=== PATIENT | female | born 1945 | race Caucasian/White ===

== ENCOUNTER → 2019-10-13 13:32 | Outpatient (BNVA) | payer MEDICARE, OTHER, SELFPAY | PROVIDERS: Family Provider Internal Medicine; PCP Internal Medicine; Visit Provider Internal Medicine | DX: E03.9 Hypothyroidism, unspecified (principal) | CPT/HCPCS: 84443 ==

== ENCOUNTER → 2020-02-22 16:05 | Outpatient (BNVA) | payer MEDICARE, OTHER, SELFPAY | PROVIDERS: Family Provider Internal Medicine; PCP Internal Medicine; Visit Provider Internal Medicine Cardiovascular Disease | DX: R06.02 Shortness of breath (principal); Z79.01 Long term (current) use of anticoagulants; I50.33 Acute on chronic diastolic (congestive) heart failure; I12.9 Hypertensive chronic kidney disease with stage 1 through stage 4 chronic kidney disease, or unspecified chronic kidney disease; N18.9 Chronic kidney disease, unspecified; R07.89 Other chest pain; I42.8 Other cardiomyopathies; I35.8 Other nonrheumatic aortic valve disorders; E03.9 Hypothyroidism, unspecified; E78.2 Mixed hyperlipidemia; Z87.891 Personal history of nicotine dependence | CPT/HCPCS: 80048; 83880; 84443; 85025 ==

== ENCOUNTER 2020-03-12 15:21 | Outpatient (CLI) | payer MEDICARE, OTHER, SELFPAY ==
--- NOTE | 2020-03-12 15:45 | USCV_ITS ---
Beatrice Shiela Age: 74 Gender: F : 1945 Exam Date: 03/12/2020 15:43 Ordering Phys: Angela Holloway MD ([email or web address]) Technologist: Analy Arellano Exam Location: [facility] Indication: SOB BP: / HR: 88 Rhythm: Sinus Technical Quality: Technically difficult study MEASUREMENTS (Male / Female) Normal Values 2D ECHO LV Diastolic Diameter PLAX 4.4 cm 4.2 - 5.9 / 3.9 - 5.3 cm LV Systolic Diameter PLAX 1.9 cm LV Chamber Size 3.2 cm IVS Diastolic Thickness 1.3 cm 0.6 - 1.0 / 0.6 - 0.9 cm IVS Systolic Thickness 1.6 cm LVPW Diastolic Thickness 1.3 cm 0.6 - 1.0 / 0.6 - 0.9 cm LVPW Systolic Thickness 1.7 cm RV Chamber Size 2.7 cm LVOT Diameter 2.0 cm LV Ejection Fraction 2D Teich 86.2 % LV Ejection Fraction MOD 2C 45.5 % LV Ejection Fraction 2C AL 49.8 % LA Diameter 3.0 cm LA Width 3.1 cm LA Height 4.9 cm RA Width 4.1 cm RA Height 4.5 cm Aorta at Sinotubular Diameter 2.6 cm M-MODE LV Diastolic Diameter MM 3.8 cm 4.2 - 5.9 / 3.9 - 5.3 cm LV Systolic Diameter MM 2.5 cm LV Ejection Fraction MM Teich 66.0 % IVS Diastolic Thickness MM 0.7 cm 0.6 - 1.0 / 0.6 - 0.9 cm IVS Systolic Thickness MM 1.4 cm LVPW Diastolic Thickness MM 1.0 cm 0.6 - 1.0 / 0.6 - 0.9 cm LVPW Systolic Thickness MM 1.8 cm RV Diastolic Diameter MM 0.7 cm Aortic Annulus Diameter 3.2 cm LA Ao Ratio MM 1.1 MV E Point Septal Separation 0.5 cm DOPPLER AV Peak Velocity 151.0 cm/s LVOT Peak Velocity 103.7 cm/s AV Area Cont Eq vti 2.0 cm squared AV Area Cont Eq pk 2.2 cm squared MV Area PHT 6.9 cm squared Mitral E to A Ratio 0.8 MV E' Velocity 45.0 cm/s Mitral E to MV E' Ratio 11.8 Mitral E to LV E' Lateral Ratio 12.3 Mitral E to LV E' Septal Ratio 11.5 TR Peak Velocity 177.9 cm/s TR Peak Gradient 12.7 mmHg TR Mean Velocity 113.3 cm/s TR Mean Gradient 6.0 mmHg TR Velocity Time Integral 35.2 cm TV Peak E Velocity 100.0 cm/s Right Atrial Pressure 3.0 mmHg Pulmonary Artery Systolic Pressu 15.7 mmHg PV Peak Velocity 104.0 cm/s RV Acceleration Time 0.1 s RV Ejection Time 0.3 s RV AcT/ET 0.4 FINDINGS Left Ventricle Normal LV size and ejection fraction of 65%. Mild concentric left renal hypertrophy.abnormal septal motion consistent with conduction abnormality. Right Ventricle The right ventricle is normal in size and function. Right Atrium The right atrium is normal in size. Mildly increased right atrial size. Left Atrium The left atrium is normal in size. Mitral Valve No gross abnormalities noted Aortic Valve Thickened aortic valve. Mild aortic valve regurgitation. Tricuspid Valve Trace tricuspid valve regurgitation. Pulmonic Valve Pulmonic valve not well visualized. Pericardium Normal pericardium without effusion. Aorta Normal ascending aorta dimension. CONCLUSIONS Normal LV size and ejection fraction of 65%. Mild concentric left renal hypertrophy.abnormal septal motion consistent with conduction abnormality. Mild right atrial enlargement Thickened aortic valve. Mild aortic valve regurgitation. Trace tricuspid valve regurgitation. There is no pericardial effusion. There are no intracardiac masses. Compared to the study from 10/24/2016, the tricuspid regurgitation appears to be less severe. Dr Angela Holloway MD FAC (Electronically Signed) Final Date: 13 March 2020 13:18 S
== END 2020-03-12 15:22 | disposition home or self-care (01) ==
LOC: RAD 15:29
PROVIDERS: PCP Internal Medicine; Visit Provider Internal Medicine Cardiovascular Disease
DX: R07.89 Other chest pain (principal); R06.02 Shortness of breath; I35.8 Other nonrheumatic aortic valve disorders
CPT/HCPCS: 93306

== ENCOUNTER → 2020-09-13 11:41 | Outpatient (BNVA) | payer MEDICARE, OTHER, SELFPAY | PROVIDERS: PCP Internal Medicine; Visit Provider Internal Medicine Cardiovascular Disease | DX: R06.02 Shortness of breath (principal); Z79.01 Long term (current) use of anticoagulants; I50.33 Acute on chronic diastolic (congestive) heart failure; N18.9 Chronic kidney disease, unspecified; R07.89 Other chest pain | CPT/HCPCS: 80048; 83880; 84443 ==

== ENCOUNTER 2021-06-27 14:42 | Outpatient (CLI) | payer MEDICARE, OTHER, SELFPAY ==
--- NOTE | 2021-06-27 14:30 | XR_ITS ---
WS: [id number] SCREENING DEXA SCAN [employer] CLINICAL INFORMATION: Z78.0 COMPARISON: None. FINDINGS: The L1-L4 bone mineral density measures . This corresponds to a T score score of and Z score of . Left femoral neck bone mineral density measures 0.727 g/cm2. This corresponds to a T score of -2.2 an d Z score of -0.7. Right femoral neck bone mineral density measures 0.777 g/cm2. This corresponds to a T score -1.8of an d Z score of -0.3. Mean femoral neck bone mineral density measures 0.752 g/cm2. This corresponds to a T score of -2.0 an d Z score of -0.5. XR/XR DEXA axial skeleton* 93776 IMPRESSION: Osteopenia in the lumbar spine. Osteopenia of the femoral necks. Patient's FRAX calculated 10 year probability for major osteoporotic fracture i s 24.2 % and osteoporotic hip fracture is 14.3%.
== END 2021-06-27 14:43 | disposition home or self-care (01) ==
LOC: RAD 14:45
PROVIDERS: PCP Internal Medicine; Visit Provider Internal Medicine
DX: Z78.0 Asymptomatic menopausal state (principal); M85.89 Other specified disorders of bone density and structure, multiple sites
CPT/HCPCS: 77080

== ENCOUNTER → 2022-02-05 14:50 | Outpatient (BNVA) | payer MEDICARE, OTHER, SELFPAY | PROVIDERS: PCP Internal Medicine; Visit Provider Internal Medicine | DX: I42.8 Other cardiomyopathies (principal); F33.42 Major depressive disorder, recurrent, in full remission; E03.9 Hypothyroidism, unspecified; E78.2 Mixed hyperlipidemia; I10 Essential (primary) hypertension; Z00.00 Encounter for general adult medical examination without abnormal findings | CPT/HCPCS: 80053; 84443; 85025 ==

== ENCOUNTER → 2023-02-17 16:03 | Outpatient (BNVA) | payer MEDICARE, OTHER, SELFPAY | PROVIDERS: PCP Internal Medicine; Visit Provider Internal Medicine Cardiovascular Disease | DX: R07.9 Chest pain, unspecified (principal); I44.7 Left bundle-branch block, unspecified; I11.0 Hypertensive heart disease with heart failure; I50.22 Chronic systolic (congestive) heart failure; I35.8 Other nonrheumatic aortic valve disorders; E03.9 Hypothyroidism, unspecified; E78.2 Mixed hyperlipidemia | CPT/HCPCS: 93005; 99214 ==

== ENCOUNTER → 2023-08-14 08:52 | Outpatient (BNVA) | payer MEDICARE, OTHER, SELFPAY | PROVIDERS: PCP Internal Medicine; Visit Provider Nurse Practitioner Family | DX: I11.0 Hypertensive heart disease with heart failure (principal); I50.22 Chronic systolic (congestive) heart failure | CPT/HCPCS: 99214 ==

== ENCOUNTER → 2024-11-07 15:20 | Outpatient (BNVA) | payer MEDICARE, OTHER, SELFPAY | PROVIDERS: PCP Internal Medicine; Visit Provider Internal Medicine Cardiovascular Disease | DX: I11.0 Hypertensive heart disease with heart failure (principal); I50.20 Unspecified systolic (congestive) heart failure; I25.10 Atherosclerotic heart disease of native coronary artery without angina pectoris; I35.0 Nonrheumatic aortic (valve) stenosis; E03.9 Hypothyroidism, unspecified; E78.2 Mixed hyperlipidemia; I44.7 Left bundle-branch block, unspecified; R94.31 Abnormal electrocardiogram [ECG] [EKG] | CPT/HCPCS: 99214 ==

== ENCOUNTER 2025-01-15 10:18 | Emergency (ER) | payer MEDICARE, OTHER, SELFPAY ==
--- OUTSIDE RECORDS SUMMARY | 2025-01-15 10:30 | XMS_ITS | Encounter Summary ---
Author Organization [facility] Address [address] [place] [address] Care Team Providers Care Vp Sales Name Role Phone Non-Staff, Physician Primary Care Provider Unava ilable Encounter Details Date Type Department Care Team (Latest Contact Info) Description 07/27/2006 Outpatient Historical [facility] 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 Comparison: None. Findings: Lung bryant are mildly hyperinflated. Thickening in the pulmonary apices with pleuralcalcification is present. There is a small accessory fissure in the right paratracheal region. Lower lung bryant show scattered granulomatous changes. Cardiac silhouette pulmonary vasculatureare unremarkable. Thoracic aorta is unremarkable. Bony structures show degenerative changes. Impression: Nonspecific study. - Dictated By: bEer Turner M.D. Electronically Signed By: Eber Turner M.D. Date Signed: 07/28/06 AMA Procedure Note 02/24/2009 Exam: Chest - PA ([id number])Date/Time of Exam: Jul 27, 2006 1:48:54 PMIndication: Preoperative. Comparison: None. Findings: Lung bryant are mildly hyperinflated. Thickening in the pulmonary apiceswith pleuralcalcification is present. There is a small accessory fissure in the right paratrachealregion. Lower lung bryant show scattered granulomatous changes. Cardiac silhouettepulmonary vasculatureare unremarkable. Thoracic aorta is unremarkable. Bony structures showdegenerative changes. Impression: Nonspecific study. - Dictated By: Eber Turner M.D. Electronically Signed By: Eber Turner M.D. Date Signed: 07/28/06 AMA Hanh Balderas MD DIAGNOSTIC IMAGING ORDERABLES Final Result documented in this encounter Visit Diagnoses Diagnosis Preoperative examination, unspecified- Primary documented in this encounter Care Teams Vp Sales Relationship Specialty Start Date End Date Non-Staff, Physician NO ADDRESS ON FILE PCP - General 07/18/13 documented as of this encounter
--- OUTSIDE RECORDS SUMMARY | 2025-01-15 10:30 | XMS_ITS | Encounter Summary ---
Author Organization [facility] Address [address] [place] [address] Care Team Providers Care Investigator Cash Shortage Name Role Phone Non-Staff, Physician Primary Care Provider Unava ilable Encounter Details Date Type Department Care Team (Latest Contact Info) Description 12/24/2006 Outpatient Historical [facility] Medicine [place] [address] [facility] [address] [place] [phone] Julee Clay MD NO ADDRESS ON FILE Unspecified Hypothyroidism (Primary Dx); Unspecified Essential Hypertension; Other General Symptoms Social History Tobacco Use Types Packs/Day Years Used Date Smoking Tobacco: Never Assessed Comments Unknown Sex and Gender Information Value Date Recorded Sex Assigned at Not on file 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
--- OUTSIDE RECORDS SUMMARY | 2025-01-15 10:30 | XMS_ITS | Encounter Summary ---
Author Organization [facility] Address [address] [place] [address] Care Team Providers Care Neighborhood Aide Name Role Phone Non-Staff, Physician Primary Care Provider Unava ilable Encounter Details Date Type Department Care Team (Late st Contact Info) Description 05/07/2000 Outpatient Historical [facility] [address] [place] [address] Maurizio Draper MD [address] [place] [address] Routine medical exam (Primary Dx); Unspecified hypothyroidism Social History Tobacco Use Types Packs/Day Years Used Date Smoking Tobacco: Never Assessed Comments Unknown Sex and Gender Information Value Date Recorded Sex Assigned at Not on file 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
--- OUTSIDE RECORDS SUMMARY | 2025-01-15 10:30 | XMS_ITS | Encounter Summary ---
Author Organization [facility] Address [address] [place] [address] Care Team Providers Care Merchant Miller Name Role Phone Non-Staff, Physician Primary Care Provider Unava ilable Encounter Details Date Type Department Care Team (Latest Contact Info) Description 08/13/2001 Outpatient Historical [facility] [address] [place] [address] Jyoti Shepard MD [address] [place] [address] HYPOTHYROIDISM NOS (Primary Dx); MENOPAUSAL DISORDER NEC; LUMP OR MASS IN BREAST Social History Tobacco Use Types Packs/Day Years Used Date Smoking Tobacco: Never Assessed Comments Unknown Sex and Gender Information Value Date Recorded Sex Assigned at Not on file 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
--- OUTSIDE RECORDS SUMMARY | 2025-01-15 10:30 | XMS_ITS | Encounter Summary ---
Author Organization [facility] Address [address] [place] [address] Care Team Providers Care Organic Gardening Teacher Name Role Phone Non-Staff, Physician Primary Care Provider Unava ilable Encounter Details Date Type Department Care Team (Latest Contact Info) Description 09/11/2005 Outpatient Historical [facility] [address] [place] [address] Hanh Balderas MD [address] [place] [address] Uterovaginal Prolapse, Unspecified (Primary Dx); Unspecified Hypothyroidism; Anxiety State, Unspecified Social History Tobacco Use Types Packs/Day Years Used Date Smoking Tobacco: Never Assessed Comments Unknown Sex and Gender Information Value Date Recorded Sex Assigned at Not on file Legal 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
--- OUTSIDE RECORDS SUMMARY | 2025-01-15 10:30 | XMS_ITS | Encounter Summary ---
Author Organization [facility] Address [address] [place] [address] Care Team Providers Care Dough Cutter Name Role Phone Non-Staff, Physician Primary Care Provider Unava ilable Encounter Details Date Type Department Care Team (Latest Contact Info) Description 11/08/2004 Outpatient Historical [facility]- [address] [place] [phone] Del Guerrero NP NO ADDRESS ON FILE IMPACTED CERUMEN (Primary Dx) Social History Tobacco Use Types Packs/Day Years Used Date Smoking Tobacco: Never Assessed Comments Unknown Sex and Gender Information Value Date Recorded Sex Assigned at Not on file 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
--- OUTSIDE RECORDS SUMMARY | 2025-01-15 10:30 | XMS_ITS | Encounter Summary ---
Author Organization [employer] [facility] Address [address] [place] [address] Care Team Providers Care Clinical Sales Consultant Name Role Phone Non-Staff, Physician Primary Care Provider Unava ilable Encounter Details Date Type Department Care Team (Late st Contact Info) Description 01/21/2000 Outpatient Historical [facility] Maurizio Draper MD [address] [place], [place] [id number] Unspecified hypothyroidism (Primary Dx) Social History Tobacco Use Types Packs/Day Years Used Date Smoking Tobacco: Never Assessed Comments Unknown Sex and Gender Information Value Date Recorded Sex Assigned at Not on file Legal 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
--- OUTSIDE RECORDS SUMMARY | 2025-01-15 10:30 | XMS_ITS | Encounter Summary ---
Author Organization [facility] Address [address] [place] [address] Care Team Providers Care Jacquard Loom Weaver Name Role Phone Non-Staff, Physician Primary Care Provider Unava ilable Encounter Details Date Type Department Care Team (Late st Contact Info) Description 03/15/1999 Outpatient Historical [facility] [address] [place] [address] Maurizio Draper MD [address] [place] [address] Routine medical exam (Primary Dx); Screening for malignant neoplasm of the cervix; Unspecified hypothyroidism; Need for prophylactic vaccination and inoculation against other combinations of diseases Social History Tobacco Use Types Packs/Day Years Used Date Smoking Tobacco: Never Assessed Comments Unknown Sex and Gender Information Value Date Recorded Sex Assigned at Not on file Legal 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 Gender Identity Not on file Sexual Orientation Not on file documented as of this encounter Plan of Treatment Not on file documented as of this encounter Visit Diagnoses Diagnosis Routine medical exam- Primary Routine general medical examination at a health care facility Screening for malignant neoplasm of the cervix Unspecified hypothyroidism Need for prophylactic vaccination and inoculation against other combinations of diseases documented in this encounter Care Teams Jacquard Loom Weaver Relationship Specialty Start Date End Date Non-Staff, Physician NO ADDRESS ON FILE PCP - General 07/18/13 documented as of this encounter
--- OUTSIDE RECORDS SUMMARY | 2025-01-15 10:30 | XMS_ITS | Encounter Summary ---
Author Organization [facility] Address [address] [place] [address] Care Team Providers Care Resin Coater Name Role Phone Non-Staff, Physician Primary Care Provider Unava ilable Encounter Details Date Type Department Care Team (Latest Contact Info) Description 05/14/2006 Outpatient Historical [facility] Medicine [place] [address] [facility] [address] [place] [address] Julee Clay MD NO ADDRESS ON FILE Uterine Prolapse (Primary Dx); Anxiety State, Unspecified Social History Tobacco Use Types Packs/Day Years Used Date Smoking Tobacco: Never Assessed Comments Unknown Sex and Gender Information Value Date Recorded Sex Assigned at Not on file Legal Sex Female 4:34 AM MANAGER TARGET Gender Identity Not on file Sexual Orientation Not on file documented as of this encounter Plan of Treatment Not on file documented as of this encounter Visit Diagnoses Diagnosis Uterine prolapse- Primary Uterine prolapse without mention of vaginal wall prolapse Anxiety state, unspecified documented in this encounter Care Teams Resin Coater Relationship Specialty Start Date End Date Non-Staff, Physician NO ADDRESS ON FILE PCP - General 07/18/13 documented as of this encounter
--- OUTSIDE RECORDS SUMMARY | 2025-01-15 10:30 | XMS_ITS | Encounter Summary ---
Author Organization [facility] Address [address] [place] [address] Care Team Providers Care Ese Teacher Name Role Phone Non-Staff, Physician Primary Care Provider Unava ilable Encounter Details Date Type Department Care Team (Late st Contact Info) Description 04/02/1999 Outpatient Historical [facility] [address] [place] [address] Maurizio Draper MD [address] [place] [address] Impacted cerumen (Primary Dx) Social History Tobacco Use Types Packs/Day Years Used Date Smoking Tobacco: Never Assessed Comments Unknown Sex and Gender Information Value Date Recorded Sex Assigned at Not on file Legal Sex Female 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
--- OUTSIDE RECORDS SUMMARY | 2025-01-15 10:30 | XMS_ITS | Encounter Summary ---
Author Organization [facility] Address [address] [place] [address] Care Team Providers Care Cdl Program Coordinator Name Role Phone Non-Staff, Physician Primary Care Provider Unava ilable Encounter Details Date Type Department Care Team (Latest Contact Info) Description 03/19/2006 Outpatient Historical [facility] [facility] [address] [place] [address] Hanh Balderas MD [address] [place] [address] Uterovaginal Prolapse, Unspecified (Primary Dx) Social History Tobacco Use Types Packs/Day Years Used Date Smoking Tobacco: Never Assessed Comments Unknown Sex and Gender Information Value Date Recorded Sex Assigned at Not on file Legal Sex Female 4:34 AM GEOLOGICAL E LOGGER Gender Identity Not on file Sexual Orientation Not on file documented as of this encounter Plan of Treatment Not on file documented as of this encounter Visit Diagnoses Diagnosis Uterovaginal prolapse, unspecified- Primary documented in this encounter Care Teams Cdl Program Coordinator Relationship Specialty Start Date End Date Non-Staff, Physician NO ADDRESS ON FILE PCP - General 07/18/13 documented as of this encounter
--- OUTSIDE RECORDS SUMMARY | 2025-01-15 10:30 | XMS_ITS | Encounter Summary ---
Author Organization [facility] Address [address] [place] [address] Care Team Providers Care Program Management Professional Name Role Phone Non-Staff, Physician Primary Care Provider Unava ilable Encounter Details Date Type Department Care Team (Latest Contact Info) Description 02/24/2005 Outpatient Historical [facility] OBGYN-[place] [address] [place] [address] [address] [place] [address] Hanh Balderas MD [address] [place] [address] Routine medical exam (Primary Dx); ROUTINE METEOROLOGICAL ENGINEER EXAMINATION; Atrophic vaginitis Social History Tobacco Use Types Packs/Day Years Used Date Smoking Tobacco: Never Assessed Comments Unknown Sex and Gender Information Value Date Recorded Sex Assigned at Not on file 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
--- OUTSIDE RECORDS SUMMARY | 2025-01-15 10:30 | XMS_ITS | Encounter Summary ---
Author Organization [facility] Address [address] [place] [address] Care Team Providers Care Frozen Yogurt Maker Name Role Phone Non-Staff, Physician Primary Care Provider Unava ilable Encounter Details Date Type Department Care Team (Latest Contact Info) Description 05/13/2000 Outpatient Historical [facility] Robert [facility] [place] [address] [place] [phone] Hayden Falk MD NO ADDRESS ON FILE Other screening mammogram (Primary Dx) Social History Tobacco Use Types Packs/Day Years Used Date Smoking Tobacco: Never Assessed Comments Unknown Sex and Gender Information Value Date Recorded Sex Assigned at Not on file Legal Sex Female 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
--- OUTSIDE RECORDS SUMMARY | 2025-01-15 10:30 | XMS_ITS | Encounter Summary ---
Author Organization [facility] Address [address] [place] [address] Care Team Providers Care Product Development Scientist Name Role Phone Non-Staff, Physician Primary Care Provider Unava ilable Encounter Details Date Type Department Care Team (Latest Contact Info) Description 08/17/2001 Outpatient Historical [facility]3] [facility] [place] [address] [place] [address] Jyoti Shepard MD [address] [place] [address] OTHER OVARIAN FAILURE (Primary Dx); SENILE OSTEOPOROSIS Social History Tobacco Use Types Packs/Day Years Used Date Smoking Tobacco: Never Assessed Comments Unknown Sex and Gender Information Value Date Recorded Sex Assigned at Not on file Legal Sex Female 4:34 AM ENDS DOWN CHECKER Gender Identity Not on file Sexual Orientation Not on file documented as of this encounter Plan of Treatment Not on file documented as of this encounter Visit Diagnoses Diagnosis Other ovarian failure(256.39)- Primary Other ovarian failure Senile osteoporosis documented in this encounter Care Teams Product Development Scientist Relationship Specialty Start Date End Date Non-Staff, Physician NO ADDRESS ON FILE PCP - General 07/18/13 documented as of this encounter
--- OUTSIDE RECORDS SUMMARY | 2025-01-15 10:30 | XMS_ITS | Encounter Summary ---
Author Organization [facility] Address [address] [place] [address] Care Team Providers Care Building Equipment Inspector Name Role Phone Non-Staff, Physician Primary Care Provider Unava ilable Encounter Details Date Type Department Care Team (Latest Contact Info) Description 08/17/2001 Outpatient Historical [facility] [place] [address] [place] [facility] [address] [place] [phone] Cari Cartagena MD NO ADDRESS ON FILE LUMP OR MASS IN BREAST (Primary Dx) Social History Tobacco Use Types Packs/Day Years Used Date Smoking Tobacco: Never Assessed Comments Unknown Sex and Gender Information Value Date Recorded Sex Assigned at Not on file Legal Sex Female 4:34 AM SPECIAL PROCEDURES NURSE Gender Identity Not on file Sexual Orientation Not on file documented as of this encounter Plan of Treatment Not on file documented as of this encounter Visit Diagnoses Diagnosis Lump or mass in breast- Primary documented in this encounter Care Teams Building Equipment Inspector Relationship Specialty Start Date End Date Non-Staff, Physician NO ADDRESS ON FILE PCP - General 07/18/13 documented as of this encounter
--- OUTSIDE RECORDS SUMMARY | 2025-01-15 10:30 | XMS_ITS | Encounter Summary ---
Author Organization [facility] Address [address] [place] [address] Care Team Providers Care Spool Winder Name Role Phone Non-Staff, Physician Primary Care Provider Unava ilable Encounter Details Date Type Department Care Team (Late st Contact Info) Description 10/25/1999 Outpatient Historical [facility] Maurizio Draper MD [address] [place], [place] [id number] Unspecified hypothyroidism (Primary Dx) Social History Tobacco Use Types Packs/Day Years Used Date Smoking Tobacco: Never Assessed Comments Unknown Sex and Gender Information Value Date Recorded Sex Assigned at Not on file Legal Sex Female 4:34 AM CHIP FRIER Gender Identity Not on file Sexual Orientation Not on file documented as of this encounter Plan of Treatment Not on file documented as of this encounter Visit Diagnoses Diagnosis Unspecified hypothyroidism- Primary documented in this encounter Care Teams Spool Winder Relationship Specialty Start Date End Date Non-Staff, Physician NO ADDRESS ON FILE PCP - General 07/18/13 documented as of this encounter
--- OUTSIDE RECORDS SUMMARY | 2025-01-15 10:30 | XMS_ITS | Clinical Summary ---
Author Organization [facility] Address [address] [address] Care Team Providers Care Learning And Development Director Name Role Phone Non-Staff, Physician Primary Care Provider Unava ilable Medications levothyroxine (SYNTHROID) 137 mcg Oral Tab Take 1 Tab by mouth daily. 30 Tab 0 06/28/2008 Active Immunizations Immunization Administration Dates Next Due (TDVAX)(7 YRS UP) TETANUS AN D DIPHTHERIA TOXOIDS, ADSORBED (2 LF OF TETANUS TOXOID AND 2 LF OF DIPHTHERIA TOXOID), 0.5ML (PF), IM 03/15/1999 Social History Tobacco Use Types Packs/Day Years Used Date Smoking Tobacco: Never Assessed Comments Unknown Sex and Gender Information Value Date Recorded Sex Assigned at Not on file Legal Sex Female 4:34 AM INFORMATION MANAGER Gender Identity Not on file Sexual Orientation Not on file Plan of Treatment Health Maintenance Due Date Last Done Comments PNEUMOCOCCAL VACCINE 50+ YEARS (1 of 1 - PCV) 04/24/18 94 ZOSTER VACCINE (1 of 2) 1993 DTAP/TDAP/TD VACCINES (1 - Tdap) 03/16/1999 03/15/19 99 OSTEOPOROSIS SCREENING 2008 RSV VACCINE (60+ or ) (1 - 1-dose 75+ series) 2018 INFLUENZA VACCINE (#1) 2024 Insurance [facility] MEDICARE PART A AND B Care Teams Learning And Development Director Relationship Specialty Start Date End Date Non-Staff, Physician NO ADDRESS ON FILE PCP - General 07/18/13
--- OUTSIDE RECORDS SUMMARY | 2025-01-15 10:30 | XMS_ITS | Encounter Summary ---
Author Organization [facility] Address [address] [place] [address] Care Team Providers Care Threat Analyst Name Role Phone Non-Staff, Physician Primary Care Provider Unava ilable Encounter Details Date Type Department Care Team (Latest Contact Info) Description 04/28/2001 Outpatient Historical [facility] [place] [place] [address] Jyoti Shepard MD [address] [place] [phone] HYPOTHYROIDISM NOS (Primary Dx) Social History Tobacco Use Types Packs/Day Years Used Date Smoking Tobacco: Never Assessed Comments Unknown Sex and Gender Information Value Date Recorded Sex Assigned at Not on file Legal Sex Female 4:34 AM OIL BOILER Gender Identity Not on file Sexual Orientation Not on file documented as of this encounter Plan of Treatment Not on file documented as of this encounter Visit Diagnoses Diagnosis Unspecified hypothyroidism- Primary documented in this encounter Care Teams Threat Analyst Relationship Specialty Start Date End Date Non-Staff, Physician NO ADDRESS ON FILE PCP - General 07/18/13 documented as of this encounter
--- OUTSIDE RECORDS SUMMARY | 2025-01-15 10:30 | XMS_ITS | Encounter Summary ---
Author Organization [facility] Address [address] [place] [address] Care Team Providers Care Sales Account Manager Name Role Phone Non-Staff, Physician Primary Care Provider Unava ilable Encounter Details Date Type Department Care Team (Latest Contact Info) Description 11/12/2006 Outpatient Historical [facility] [address] [place] [address] Hanh Balderas MD [address] [place] [address] Follow-Up Examination, Following Unspecified Surgery (Primary Dx) Social History Tobacco Use Types Packs/Day Years Used Date Smoking Tobacco: Never Assessed Comments Unknown Sex and Gender Information Value Date Recorded Sex Assigned at Not on file Legal Sex Female 4:34 AM VENTURE CAPITAL ANALYST Gender Identity Not on file Sexual Orientation Not on file documented as of this encounter Plan of Treatment Not on file documented as of this encounter Visit Diagnoses Diagnosis Follow-up examination, following unspecified surgery- Primary documented in this encounter Care Teams Sales Account Manager Relationship Specialty Start Date End Date Non-Staff, Physician NO ADDRESS ON FILE PCP - General 07/18/13 documented as of this encounter
--- OUTSIDE RECORDS SUMMARY | 2025-01-15 10:30 | XMS_ITS | Encounter Summary ---
Author Organization [facility] Address [address] [place] [address] Care Team Providers Care Naval Aircrewman Operator Name Role Phone Non-Staff, Physician Primary Care Provider Unava ilable Encounter Details Date Type Department Care Team (Latest Contact Info) Description 11/18/2002 Outpatient Historical [facility] [place] [place] [address] Jyoti hSepard MD [address] [place] [address] HYPOTHYROIDISM NOS (Primary Dx); SYMPTOMATIC FEMALE CLIMACTERIC STATE Social History Tobacco Use Types Packs/Day Years Used Date Smoking Tobacco: Never Assessed Comments Unknown Sex and Gender Information Value Date Recorded Sex Assigned at Not on file Legal Sex Female 4:34 AM SENIOR GAME ADVISOR Gender Identity Not on file Sexual Orientation Not on file documented as of this encounter Plan of Treatment Not on file documented as of this encounter Visit Diagnoses Diagnosis Unspecified hypothyroidism- Primary Symptomatic menopausal or female climacteric states documented in this encounter Care Teams Naval Aircrewman Operator Relationship Specialty Start Date End Date Non-Staff, Physician NO ADDRESS ON FILE PCP - General 07/18/13 documented as of this encounter
--- OUTSIDE RECORDS SUMMARY | 2025-01-15 10:30 | XMS_ITS | Encounter Summary ---
Author Organization [facility] Address [address] [place] [address] Care Team Providers Care Petroleum Refinery Laborer Name Role Phone Non-Staff, Physician Primary Care Provider Unava ilable Encounter Details Date Type Department Care Team (Latest Contact Info) Description 07/27/2006 Outpatient Historical [facility] [address] [place] [address] Hanh Balderas MD [address] [place] [address] Pre-Operative Cardiovascular Examination (Primary Dx) Social History Tobacco Use Types Packs/Day Years Used Date Smoking Tobacco: Never Assessed Comments Unknown Sex and Gender Information Value Date Recorded Sex Assigned at Not on file Legal Sex Female 4:34 AM FISHING TOOL TECHNICIAN OIL WELL Gender Identity Not on file Sexual Orientation Not on file documented as of this encounter Plan of Treatment Not on file documented as of this encounter Procedures Procedure Name Priority Date/Time Associated Diagnosis Comments URINALYSIS W/REFLEX MICROSCOPIC Routine 07/27/2006 2:07 PM CDT CBC WITH DIFFERENTIAL Routine 07/27/2006 1:03 PM CDT COMPREHENSIVE METABOLIC PANEL Routine 07/27/2006 1:03 PM CDT documented in this encounter Results * URINALYSIS (07/27/2006 2:07 PM CDT) COLOR UA Yellow Straw INTERFACE SYSTEM CLARITY UA Clear Clear INTERFACE SYSTEM LEUKOCYTE ESTERASE UA NEGATIVE NEGATIVE INTERFACE SYSTEM NITRITE UA NEGATIVE NEGATIVE INTERFACE SYSTEM PH UA 6.0 5.0 - 9.0 INTERFACE SYSTEM PROTEIN UA NEGATIVE NEGATIVE INTERFACE SYSTEM GLUCOSE UA NEGATIVE NEGATIVE INTERFACE SYSTEM KETONES UA NEGATIVE NEGATIVE INTERFACE SYSTEM UROBILINOGEN UA 0.2 0.2 INTE RFACE SYSTEM BILIRUBIN UA NEGATIVE NEGATIVE INTERFA CE SYSTEM BLOOD UA NEGATIVE NEGATIVE INTERFACE SYSTEM SPECIFIC GRAVITY UA 1.020 1.005 - 1.030 INTERFACE SYSTEM MICRO EXAM No No INTERFACE SYSTEM 07/27/2006 2:07 PM CDT Hanh Balderas MD URINE ORDERABLES Edited Performing Organization Address [facility] de Phone Number INTERFACE SYSTEM Refer to clinic/hospital department * (ABNORMAL) COMPREHENSIVE METABOLIC PANEL (07/27/2006 1:03 PM CDT) GLUCOSE 96 70 - 110 mg/dL INTERFACE SYSTEM BUN 15 7 - 17 mg/dL INTERFACE SYSTEM CREATININE 0.7 0.7 - 1.2 mg/dL INTERFACE SYSTEM SODIUM 139 136 - 145 mEq/L INTERFACE SYSTEM POTASSIUM 4.4 3.5 - 5.0 mEq/L INTERFACE SYSTEM CHLORIDE 104 95 - 110 mEq/L INTERFACE SYSTEM CO2 29 22 - 32 mmol/l INTERFACE SYSTEM CALCIUM 9.9 8.4 - 10.5 mg/dL INTERFACE SYSTEM TOTAL PROTEIN 7.1 6.3 - 8.2 g/dL INTERFACE SYSTEM ALBUMIN 4.8 3.5 - 5.0 g/dL INTERFACE SYSTEM ALKALINE PHOSPHATASE 89 25 - 100 U/L INTERFACE SYSTEM AST 26 8 - 33 U/L INTERFACE SYSTEM ALT 21 4 - 36 IU/L INTERFACE SYSTEM BILIRUBIN TOTAL 0.6 0.3 - 1.2 mg/dL INTERFACE SYSTEM GLOBULIN (CALC) 2.3(L) 2.4 - 3.9 g/dL INTERFACE SYSTEM ALBUMIN/GLOBULIN RATIO 2.1 1.0 - 2.3 INTERFACE SYSTEM ANION GAP 10 9 - 20 mEq/L INTERFACE SYSTEM OSMOLALITY, CALCULATED 287 275 - 295 mOsm/Kg INTERFACE SYSTEM 07/27/2006 1:03 PM CDT Hanh Balderas MD CHEMISTRY ORDERABLES Edited Performing Organization Address [facility] de Phone Number INTERFACE SYSTEM Refer to clinic/hospital department * (ABNORMAL) CBC WITH DIFFERENTIAL (07/27/2006 1:03 PM CDT) WBC 5.5 4.8 - 10.8 K/ul INTERFACE SYSTEM RBC 4.87 4.20 - 5.40 Mil/ul INTERFACE SYSTEM HEMOGLOBIN 14.5 12.0 - 16.0 g/dL INTERFACE SYSTEM HEMATOCRIT 42.7 36.0 - 46.0 % INTERFACE SYSTEM MCV 87.7 84.0 - 103.0 Fl INTERFACE SYSTEM MCH 29.8 27.0 - 34.0 pg INTERFACE SYSTEM MCHC 34.0 30.0 - 35.0 g/dL INTERFACE SYSTEM RDW 12.6 11.0 - 14.5 % INTERFACE SYSTEM PLATELETS 253 140 - 440 K/ul INTERFACE SYSTEM MPV 10.5 8.9 - 12.8 Fl INTERFACE SYSTEM NEUTROPHILS 48.0 42.2 - 75.2 % INTERFACE SYSTEM LYMPHOCYTES 33.4 24.0 - 44.0 % INTERFACE SYSTEM MONOCYTES 14.1(H) 2.0 - 10.0 % INTERFACE SYSTEM EOSINOPHILS 3.9 0.0 - 7.0 % INTERFACE SYSTEM BASOPHILS 0.6 0.0 - 1.0 % INTERFACE SYSTEM NEUTROPHIL ABSOLUTE 2.6 2.0 - 8.0 K/ul INTERFACE SYSTEM LYMPHOCYTE ABSOLUTE 1.8 1.2 - 4.0 K/ul INTERFACE SYSTEM MONOCYTE ABSOLUTE 0.8(H) 0.1 - 0.6 K/ul INTERFACE SYSTEM EOSINOPHIL ABSOLUTE 0.2 0.0 - 0.7 K/ul INTERFACE SYSTEM BASOPHILS ABSOLUTE 0.0 0.0 - 0.2 K/ul INTERFACE SYSTEM 07/27/2006 1:03 PM CDT us Hanh Balderas MD HEMATOLOGY ORDERABLES Edited INTERFACE SYSTEM Refer to clinic/hospital department documented in this encounter Visit Diagnoses Diagnosis Pre-operative cardiovascular examination- Primary documented in this encounter Care Teams Petroleum Refinery Laborer Relationship Specialty Start Date End Date Non-Staff, Physician NO ADDRESS ON FILE PCP - General 07/18/13 documented as of this encounter
--- OUTSIDE RECORDS SUMMARY | 2025-01-15 10:30 | XMS_ITS | Encounter Summary ---
Author Organization [facility] Address [address] [place] [address] Care Team Providers Care Regulatory Affairs Associate Name Role Phone Non-Staff, Physician Primary Care Provider Unava ilable Encounter Details Date Type Department Care Team (Latest Contact Info) Description 10/01/2005 Outpatient Historical [facility] Medicine [place] [address] [facility] [address] [place] [phone] Julee Clya MD NO ADDRESS ON FILE Unspecified Pre-Operative Examination (Primary Dx); Undiagnosed Cardiac Murmurs; Uterine Prolapse Social History Tobacco Use Types Packs/Day Years Used Date Smoking Tobacco: Never Assessed Comments Unknown Sex and Gender Information Value Date Recorded Sex Assigned at Not on file Legal Sex Female 4:34 AM ENTERPRISE RECORDS ANALYST Gender Identity Not on file Sexual Orientation Not on file documented as of this encounter Plan of Treatment Not on file documented as of this encounter Visit Diagnoses Diagnosis Preoperative examination, unspecified- Primary Undiagnosed cardiac murmurs Uterine prolapse Uterine prolapse without mention of vaginal wall prolapse documented in this encounter Care Teams Regulatory Affairs Associate Relationship Specialty Start Date End Date Non-Staff, Physician NO ADDRESS ON FILE PCP - General 07/18/13 documented as of this encounter
--- OUTSIDE RECORDS SUMMARY | 2025-01-15 10:30 | XMS_ITS | Encounter Summary ---
Author Organization [facility] Address [address] [place] [address] Care Team Providers Care Shop Hand Name Role Phone Non-Staff, Physician Primary Care Provider Unava ilable Encounter Details Date Type Department Care Team (Late st Contact Info) Description 02/24/2005 Outpatient Historical [facility] FY06 Hanh Balderas MD [address] [place] [address] Social History Tobacco Use Types Packs/Day Years Used Date Smoking Tobacco: Never Assessed Comments Unknown Sex and Gender Information Value Date Recorded Sex Assigned at Not on file Legal Sex Female 4:34 AM AMERICAN STUDIES PROFESSOR Gender Identity Not on file Sexual Orientation Not on file documented as of this encounter Plan of Treatment Not on file documented as of this encounter Visit Diagnoses Not on filedocumented in this encounter Care Teams Shop Hand Relationship Specialty Start Date End Date Non-Staff, Physician NO ADDRESS ON FILE PCP - General 07/18/13 documented as of this encounter
--- OUTSIDE RECORDS SUMMARY | 2025-01-15 10:30 | XMS_ITS | Encounter Summary ---
Author Organization [facility] Address [address] [place] [address] Care Team Providers Care Career Portals Teacher Name Role Phone Non-Staff, Physician Primary Care Provider Unava ilable Encounter Details Date Type Department Care Team (Late st Contact Info) Description 12/11/1999 Outpatient Historical [facility] Maurizio Draper MD [address] [place], [place] [id number] Unspecified hypothyroidism (Primary Dx) Social History Tobacco Use Types Packs/Day Years Used Date Smoking Tobacco: Never Assessed Comments Unknown Sex and Gender Information Value Date Recorded Sex Assigned at Not on file Legal Sex Female 4:34 AM FREIGHT DELIVERY DRIVER Gender Identity Not on file Sexual Orientation Not on file documented as of this encounter Plan of Treatment Not on file documented as of this encounter Visit Diagnoses Diagnosis Unspecified hypothyroidism- Primary documented in this encounter Care Teams Career Portals Teacher Relationship Specialty Start Date End Date Non-Staff, Physician NO ADDRESS ON FILE PCP - General 07/18/13 documented as of this encounter
--- OUTSIDE RECORDS SUMMARY | 2025-01-15 10:30 | XMS_ITS | Encounter Summary ---
Author Organization [facility] Address [address] [place] [address] Care Team Providers Care Blocker Metal Base Name Role Phone Non-Staff, Physician Primary Care Provider Unava ilable Encounter Details Date Type Department Care Team (Latest Contact Info) Description 12/26/2004 Outpatient Historical [facility] [place] [address] [facility] [address] [place] [phone] Julee Clay MD NO ADDRESS ON FILE URIN TRACT INFECTION NOS (Primary Dx); HYPOTHYROIDISM NOS; CYSTOCELE, MIDLINE Social History Tobacco Use Types Packs/Day Years Used Date Smoking Tobacco: Never Assessed Comments Unknown Sex and Gender Information Value Date Recorded Sex Assigned at Not on file Legal Sex Female 4:34 AM DYE BOARDING MACHINE OPERATOR Gender Identity Not on file Sexual Orientation Not on file documented as of this encounter Plan of Treatment Not on file documented as of this encounter Visit Diagnoses Diagnosis Urinary tract infection, site not specified- Primary Unspecified hypothyroidism Cystocele, midline documented in this encounter Care Teams Blocker Metal Base Relationship Specialty Start Date End Date Non-Staff, Physician NO ADDRESS ON FILE PCP - General 07/18/13 documented as of this encounter
--- OUTSIDE RECORDS SUMMARY | 2025-01-15 10:30 | XMS_ITS | Encounter Summary ---
Author Organization [facility] Address [address] [place] [address] Care Team Providers Care Retort Cooler Name Role Phone Non-Staff, Physician Primary Care Provider Unava ilable Encounter Details Date Type Department Care Team (Late st Contact Info) Description 07/29/2006 Inpatient Historical [facility] Hanh Balderas MD [address] [place] [address] Uterovaginal Prolapse, Complete (Primary Dx) Social History Tobacco Use Types Packs/Day Years Used Date Smoking Tobacco: Never Assessed Comments Unknown Sex and Gender Information Value Date Recorded Sex Assigned at Not on file Legal Sex Female 4:34 AM PORT WARDEN Gender Identity Not on file Sexual Orientation Not on file documented as of this encounter Plan of Treatment Not on file documented as of this encounter Visit Diagnoses Diagnosis Uterovaginal prolapse, complete- Primary documented in this encounter Care Teams Retort Cooler Relationship Specialty Start Date End Date Non-Staff, Physician NO ADDRESS ON FILE PCP - General 07/18/13 documented as of this encounter
--- OUTSIDE RECORDS SUMMARY | 2025-01-15 10:30 | XMS_ITS | Encounter Summary ---
Author Organization [facility] Address [address] [place] [address] Care Team Providers Care Band Leader Name Role Phone Non-Staff, Physician Primary Care Provider Unava ilable Encounter Details Date Type Department Care Team (Latest Contact Info) Description 01/28/2005 Outpatient Historical [facility] Medicine [place] [address] [facility] [address] [place] [phone] Julee Clay MD NO ADDRESS ON FILE URIN TRACT INFECTION NOS (Primary Dx) Social History Tobacco Use Types Packs/Day Years Used Date Smoking Tobacco: Never Assessed Comments Unknown Sex and Gender Information Value Date Recorded Sex Assigned at Not on file Legal Sex Female 4:34 AM GOGGLES ASSEMBLER Gender Identity Not on file Sexual Orientation Not on file documented as of this encounter Plan of Treatment Not on file documented as of this encounter Visit Diagnoses Diagnosis Urinary tract infection, site not specified- Primary documented in this encounter Care Teams Band Leader Relationship Specialty Start Date End Date Non-Staff, Physician NO ADDRESS ON FILE PCP - General 07/18/13 documented as of this encounter
--- OUTSIDE RECORDS SUMMARY | 2025-01-15 10:30 | XMS_ITS | Encounter Summary ---
Author Organization [facility] Address [address] [place] [address] Care Team Providers Care Gas Station Attendant Name Role Phone Non-Staff, Physician Primary Care Provider Unava ilable Encounter Details Date Type Department Care Team (Latest Contact Info) Description 07/17/2004 Outpatient Historical [facility] Medicine [place] [address] [facility] [address] [place] [address] Julee Clay MD NO ADDRESS ON FILE HYPOTHYROIDISM NOS (Primary Dx); ELEV BL PRES W/O HYPERTN; IMPACTED CERUMEN Social History Tobacco Use Types Packs/Day Years Used Date Smoking Tobacco: Never Assessed Comments Unknown Sex and Gender Information Value Date Recorded Sex Assigned at Not on file Legal Sex Female 4:34 AM TABLE WORKER PACKAGER Gender Identity Not on file Sexual Orientation Not on file documented as of this encounter Plan of Treatment Not on file documented as of this encounter Visit Diagnoses Diagnosis Unspecified hypothyroidism- Primary Elevated blood pressure reading without diagnosis of hypertension Impacted cerumen documented in this encounter Care Teams Gas Station Attendant Relationship Specialty Start Date End Date Non-Staff, Physician NO ADDRESS ON FILE PCP - General 07/18/13 documented as of this encounter
--- OUTSIDE RECORDS SUMMARY | 2025-01-15 10:30 | XMS_ITS | Encounter Summary ---
Author Organization [facility] Address [address] [place] [address] Care Team Providers Care Copyist Name Role Phone Non-Staff, Physician Primary Care Provider Unava ilable Encounter Details Date Type Department Care Team (Latest Contact Info) Description 12/10/2005 Outpatient Historical [facility] Medicine [place] [address] [facility] [address] [place] [phone] Julee Clay MD NO ADDRESS ON FILE Unspecified Hypothyroidism (Primary Dx); Other General Symptoms Social History Tobacco Use Types Packs/Day Years Used Date Smoking Tobacco: Never Assessed Comments Unknown Sex and Gender Information Value Date Recorded Sex Assigned at Not on file Legal Sex Female 4:34 AM SUPERVISOR SEAMING Gender Identity Not on file Sexual Orientation Not on file documented as of this encounter Plan of Treatment Not on file documented as of this encounter Visit Diagnoses Diagnosis Unspecified hypothyroidism- Primary Other general symptoms(780.99) Other general symptoms documented in this encounter Care Teams Copyist Relationship Specialty Start Date End Date Non-Staff, Physician NO ADDRESS ON FILE PCP - General 07/18/13 documented as of this encounter
--- OUTSIDE RECORDS SUMMARY | 2025-01-15 10:30 | XMS_ITS | Encounter Summary ---
Author Organization [facility] Address [address] [facility] Attn: Epic [place] [address] Care Team Providers Care Bar Steward Name Role Phone Non-Staff, Physician Primary Care Provider Unava ilable Encounter Details Date Type Department Care Team (Late st Contact Info) Description 08/17/2001 Outpatient Historical Jyoti Shepard MD [address] [facility] [address] [place] [id number] Social History Tobacco Use Types Packs/Day Years Used Date Smoking Tobacco: Never Assessed Comments Unknown Sex and Gender Information Value Date Recorded Sex Assigned at Not on file Legal Sex Female 4:34 AM IRON LAUNDER OPERATOR Gender Identity Not on file Sexual Orientation Not on file documented as of this encounter Plan of Treatment Not on file documented as of this encounter Visit Diagnoses Not on filedocumented in this encounter Care Teams Bar Steward Relationship Specialty Start Date End Date Non-Staff, Physician NO ADDRESS ON FILE PCP - General 07/18/13 documented as of this encounter
--- OUTSIDE RECORDS SUMMARY | 2025-01-15 10:30 | XMS_ITS | Encounter Summary ---
Author Organization [facility] Address [address] [place] [address] Care Team Providers Care Mineral Resources Inspector Name Role Phone Non-Staff, Physician Primary Care Provider Unava ilable Encounter Details Date Type Department Care Team (Latest Contact Info) Description 04/17/2006 Outpatient Historical [facility] [address] [place] [address] Shikha Hanley, BRENDA [address] [place] [address] Uterovaginal Prolapse, Unspecified (Primary Dx) Social History Tobacco Use Types Packs/Day Years Used Date Smoking Tobacco: Never Assessed Comments Unknown Sex and Gender Information Value Date Recorded Sex Assigned at Not on file Legal Sex Female 4:34 AM COATING MIXER Gender Identity Not on file Sexual Orientation Not on file documented as of this encounter Plan of Treatment Not on file documented as of this encounter Visit Diagnoses Diagnosis Uterovaginal prolapse, unspecified- Primary documented in this encounter Care Teams Mineral Resources Inspector Relationship Specialty Start Date End Date Non-Staff, Physician NO ADDRESS ON FILE PCP - General 07/18/13 documented as of this encounter
--- OUTSIDE RECORDS SUMMARY | 2025-01-15 10:30 | XMS_ITS | Encounter Summary ---
Author Organization [facility] Address [address] [place] [address] Care Team Providers Care Drapery Cutter Machine Name Role Phone Non-Staff, Physician Primary Care Provider Unava ilable Encounter Details Date Type Department Care Team (Latest Contact Info) Description 09/04/2005 Outpatient Historical [facility] [place] [address] [facility] [address] [place] [phone] Julee Clay MD NO ADDRESS ON FILE Uterine Prolapse (Primary Dx); Unspecified Hypothyroidism; Anxiety State, Unspecified Social History Tobacco Use Types Packs/Day Years Used Date Smoking Tobacco: Never Assessed Comments Unknown Sex and Gender Information Value Date Recorded Sex Assigned at Not on file 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
--- OUTSIDE RECORDS SUMMARY | 2025-01-15 10:30 | XMS_ITS | Encounter Summary ---
Author Organization [facility] Address [address] [place] [address] Care Team Providers Care Brim Edge Trimmer Name Role Phone Non-Staff, Physician Primary Care Provider Unava ilable Encounter Details Date Type Department Care Team (Latest Contact Info) Description 08/03/2006 Outpatient Historical [facility] [facility] [address] [place] [address] Hanh Balderas MD [address] [place] [address] Follow-Up Examination, Following Unspecified Surgery (Primary Dx) Social History Tobacco Use Types Packs/Day Years Used Date Smoking Tobacco: Never Assessed Comments Unknown Sex and Gender Information Value Date Recorded Sex Assigned at Not on file 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
[2025-01-15 10:37] VITALS: BP 170/78; PULSE 78; RESP 18; TEMP 36.7; O2SAT 94; BMI 28.3
--- NOTE | 2025-01-15 10:40 | XRR_ITS ---
PROCEDURE INFORMATION: Exam: XR Right Shoulder Exam date and time: 01/15/2025 10:42 AM Age: 79 years old Clinical indication: Pain; Upper arm; Right; Additional info: RT upper arm/shoulder pain after fall TECHNIQUE: Imaging protocol: Radiologic exam of the right shoulder. Views: 2 or more views. COMPARISON: No relevant prior studies available. FINDINGS: Bones/joints: Comminuted fracture of the surgical neck and greater tuberosity is seen with significant displacement. Up to 2.7 cm of medial displacement of the humeral shaft relative to the greater tuberosity. Rounded calcifications projecting in the subcoracoid region may represent joint bodies. Soft tissues: Normal. XR/XR shoulder RT min 2V* [id number] IMPRESSION: Significantly displaced comminuted fracture of the proximal humerus.
--- NOTE | 2025-01-15 10:40 | XRR_ITS ---
PROCEDURE INFORMATION: Exam: XR Right Humerus Exam date and time: 01/15/2025 10:46 AM Age: 79 years old Clinical indication: Pain; Upper arm; Right; Additional info: Trauma TECHNIQUE: Imaging protocol: Radiologic exam of the right humerus. Views: 2 or more views. COMPARISON: CR (CHEST, ) 01/15/2025 10:42 AM FINDINGS: Bones/joints: Acute comminuted fracture of the proximal humerus is significantly displaced involving the surgical neck and greater tuberosity. No other fractures are seen. Soft tissues: Normal. XR/[place] [id number] IMPRESSION: Acute proximal humeral fracture.
--- NOTE | 2025-01-15 10:59 | CTR_ITS ---
PROCEDURE INFORMATION: Exam: CT Right Upper Extremity Without Contrast, Shoulder Exam date and time: 01/15/2025 11:33 AM Age: 79 years old Clinical indication: Injury or trauma; Fall; Blunt trauma (contusions or hematomas); Shoulder; Right; Additional info: Surgical neck fracture TECHNIQUE: Imaging protocol: Computed tomography of the right upper extremity without contrast. Exam focused on the shoulder. Radiation optimization: All CT scans at this facility use at least one of these dose optimization techniques: automated exposure control; mA and/or kV adjustment per patient size (includes targeted exams where dose is matched to clinical indication); or iterative reconstruction. COMPARISON: CR (CHEST, ) 01/15/2025 10:42 AM RADIATION DOSE METRICS: Total DLP (mGy-cm): 239.24 FINDINGS: Bones/joints: There is an acute markedly comminuted fracture of the proximal humerus involving the surgical neck and greater tuberosity. The surgical neck fracture is displaced up to 2 cm with the humeral shaft medially displaced. Greater tuberosity fracture displaced up to 1.3 cm. There is a large joint effusion or hemarthrosis. Subacromial and subdeltoid fluid may represent bursitis communicating with the joint effusion. Joint fluid demonstrates layering hyperdensity suggesting hematocrit level. There is moderate glenohumeral osteoarthrosis and mild acromioclavicular osteoarthrosis. Three rounded calcific bodies measuring up to 6 mm are noted medially, 2 in the subcoracoid recess and 1 just inferior and medial to the glenoid. These are consistent with joint bodies. Soft tissues: There is subcutaneous edema/fluid over the shoulder and deltoid. CT/CT shoulder RT wo con* [id number] IMPRESSION: 1. Acute comminuted fracture of the proximal humerus involving the surgical neck and greater tuberosity. Large joint effusion or hemarthrosis. 2. Other findings as detailed above.
--- NOTE | 2025-01-15 10:59 | W.ED.EXTPRO ---
HPI - Extremity Problem General: Chief complaint: Extremity Injury, Upper Stated complaint: right arm and shoulder pain Time Seen by Provider: 01/15/25 10:39 History of Present Illness: 79-year-old female presents emergency room after falling 2 days ago she was seen initially at [facility] put in an arm sling had a proximal humerus fracture. She complaining of persistent pain in the arm. She denies striking her head no loss consciousness she is not on any anticoagulants. No other injuries. Associated symptoms: Deny chest pain, fever(s) or rash Related Data Home Medications ?Medication ?Instructions ?Recorded ?Confirmed cholecalciferol (vitamin D3) 50 2,000 unit PO QDAY 05/03/19 08/14/23 mcg (2,000 unit) tablet nebivolol 10 mg tablet 10 mg PO DAILY 11/07/24 Previous Rx's ?Medication ?Instructions ?Recorded citalopram 40 mg tablet 40 mg PO QDAY #90 tabs 03/06/21 levothyroxine 125 mcg capsule 125 mcg PO QDAY #90 caps 03/06/21 pantoprazole 40 mg tablet,delayed See Rx Instructions .Route 03/06/21 release .COMPLEX #90 tabs hydrocodone 5 mg-acetaminophen 325 1 tab PO Q6H PRN pain #15 tabs 01/15/25 mg tablet Allergies Allergy/AdvReac Type Severity Reaction Status Date / Time alcohol Allergy unknown Verified 11/07/24 15:29 codeine Allergy Unknown Verified 11/07/24 15:29 diazepam (From Valium) Allergy Unknown Verified 11/07/24 15:29 Review of Systems Const: Denies: fever(s) or chills Card: Denies: chest pain Resp: Denies: dyspnea GI: Denies: abdominal pain : Denies: dysuria, urinary frequency or urinary urgency Musc: Reports: joint pain and joint swelling; Denies: neck pain or back pain Skin/Breast: Denies: rash PFSH ED PFSH: Medical History SOB (shortness of breath) Non-ischemic cardiomyopathy Aortic valve sclerosis Cardiomyopathy Valvular heart disease Hypothyroidism, unspecified Mixed hyperlipidemia HTN (hypertension), benign Esophageal ring Chronic GERD Surgical History History of bladder surgery History of hysterectomy for indication other than malignancy History of esophagogastroduodenoscopy (EGD) History of colonoscopy (~06/20/16) Family History Mother Dementia Cancer Stroke Daughter CAD (coronary artery disease) Father Cancer Son Diabetes Grandfather Lung disease Brother Lung disease Family/Other Stroke Grandmother Suicide Other Hypertension Denies family history of Clotting disorder Chronic kidney disease (CKD) Anesthesia complication Bleeding disorder Social History Smoking and tobacco/nicotine status: never used tobacco/nicotine Alcohol intake: never Substance/Drug Use: never Lives independently: Yes Household members: none Housing: House Physical Exam Const: GENERAL APPEARANCE: cooperative ORIENTATION/CONSCIOUSNESS: Yes awake, Yes oriented to person, Yes oriented to place and Yes oriented to time HENMT: COMMON NORMALS: normocephalic, atraumatic and hearing grossly normal bilaterally HEAD & SCALP: normocephalic and atraumatic Resp: COMMON NORMALS: normal respiratory effort, No retractions, No use of accessory muscles and clear to auscultation bilaterally AUSCULTATION: clear to auscultation bilaterally Cardio: COMMON NORMALS: regular rate, regular rhythm and No murmurs present (Cardio) RATE: regular rate RHYTHM: regular rhythm GI: COMMON NORMALS: Soft to palpation and No hepatosplenomegaly present AUSCULTATION: Yes normoactive bowel sounds PALPATION: Yes Soft to palpation, No Tenderness to palpation present (GI), No Guarding due to palpation present (GI) and Yes No hepatosplenomegaly present Extremity: COMMON NORMALS: normal to inspection, capillary refill normal, no clubbing, cyanosis or edema, no calf tenderness and no pedal edema Neuro: SENSORIUM/ORIENTATION: Yes oriented to person, Yes oriented to place and Yes oriented to time Skin: COMMON NORMALS: no rashes or lesions noted GENERAL SKIN EXAM: no rashes or lesions noted Course Vital Signs: Vital signs: Vital Signs Temperature 98.1 F 01/15/25 10:37 Pulse Rate 72 01/15/25 12:01 Respiratory Rate 16 01/15/25 11:12 Blood Pressure 170/78 01/15/25 12:01 Pulse Oximetry 95 01/15/25 12:01 Oxygen Delivery Me thod Room Air 01/15/25 10:37 MDM - Extremity (Nontraumatic) Medical Decision Making Patient has comminuted fracture of the proximal humerus. Reviewed with Dr. Zimmerman. CT ordered will refer to his office for definitive care for now continue in the sling hydrocodone sent in for pain. Avoid use of the right arm. Medical Records I reviewed the patient's medical records. Lab Data I reviewed the patient's lab results. Radiology Impressions Humerus X-Ray 01/15/25 10:40 IMPRESSION: Acute proximal humeral fracture. Shoulder X-Ray 01/15/25 10:40 IMPRESSION: Significantly displaced comminuted fracture of the proximal humerus. Shoulder CT 01/15/25 10:59 IMPRESSION: 1. Acute comminuted fracture of the proximal humerus involving the surgical neck and greater tuberosity. Large joint effusion or hemarthrosis. 2. Other findings as detailed above. All radiology interpretation(s) finalized by discharge Discharge Plan Discharge Patient Disposition: Home Clinical Impression: Fracture of neck of humerus Condition: Stable Prescriptions: New hydrocodone-acetaminophen 5-325 mg tablet 1 tab PO Q6H PRN (Reason: pain) Qty: 15 0RF No Action cholecalciferol (vitamin D3) 2,000 unit tablet 2,000 unit PO QDAY levothyroxine 125 mcg capsule 125 mcg PO QDAY Qty: 90 3RF citalopram 40 mg tablet 40 mg PO QDAY Qty: 90 3RF pantoprazole 40 mg tablet,delayed release (DR/EC) See Rx Instructions .ROUTE .COMPLEX Qty: 90 3RF Dose Instruction: TAKE 1 TABLET EVERY DAY Rx Instructions: TAKE 1 TABLET EVERY DAY nebivolol 10 mg tablet 10 mg PO DAILY Discharge Orders: Discharge ED (Routine); Ordered 01/15/25 Ordered By: Liang Ovalles Referrals: James George MD [Primary Care Provider, Internal Medicine] Discharge Diet: Usual diet Discharge Activity: Limit activity as instructed Patient Instructions: Opioid Safety, Pain Management, Patient Portal & Edward Instructions Activity Restrictions/Additional Instructions: Thank you for choosing [facility] for your healthcare needs today. It is very important that you follow up as instructed or that you return to the Emergency Department should you have concerns or if your condition changes or worsens in any way. Emergency department visits are focused on emergent conditions, in some cases you may require further evaluation on an outpatient basis. You were seen in the emergency room after a fall. You have a displaced fracture of the proximal humerus. Continue to wear the sling. You are given pain medications. foreign exchange services manager will make arrangements for you to follow-up with orthopedics. (Please note that included in your discharge packet is information concerning opioid safety and pain management. 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
[2025-01-15 11:12] VITALS: RESP 16; O2SAT 96
[2025-01-15] MEDS: morphine 4 mg/mL SDV 1 mL 2 MG IVP (11:12)
[2025-01-15 12:01] VITALS: BP 170/78; PULSE 72; O2SAT 95
--- NOTE | 2025-01-17 16:01 | PC.NURSE ---
Ortho referral sent.
== END 2025-01-15 12:01 | disposition home or self-care (01) ==
PROVIDERS: Emergency Provider Family Medicine; PCP Internal Medicine
DX: S42.201A Unspecified fracture of upper end of right humerus, initial encounter for closed fracture (principal); W19.XXXA Unspecified fall, initial encounter; I10 Essential (primary) hypertension; E78.2 Mixed hyperlipidemia
CPT/HCPCS: 73030; 73060; 73200; 96374; 99285; J2270

== ENCOUNTER → 2025-01-24 14:05 | Outpatient (BNVA) | payer MEDICARE, OTHER, SELFPAY | PROVIDERS: PCP Internal Medicine; Visit Provider Orthopaedic Surgery | DX: S42.291A Other displaced fracture of upper end of right humerus, initial encounter for closed fracture (principal); W18.30XA Fall on same level, unspecified, initial encounter | CPT/HCPCS: 73030; 99204 ==

== ENCOUNTER → 2025-01-31 13:31 | Outpatient (BNVA) | payer MEDICARE, OTHER, SELFPAY | PROVIDERS: PCP Internal Medicine; Visit Provider Orthopaedic Surgery | DX: S42.291A Other displaced fracture of upper end of right humerus, initial encounter for closed fracture (principal); X58.XXXA Exposure to other specified factors, initial encounter | CPT/HCPCS: 73030; 99213 ==

== ENCOUNTER 2025-03-03 11:55 | Outpatient (CLI) | payer MEDICARE, OTHER, SELFPAY ==
[2025-03-03 13:02] LABS: Creatinine Urine, Random 92 mg/dL (28-217); Microalbum Creatinine Ratio Ur 22 mg/dL (0-20)
== END 2025-03-03 11:56 | disposition home or self-care (01) ==
LOC: LAB 11:58
PROVIDERS: PCP Internal Medicine; Visit Provider Internal Medicine
DX: R80.9 Proteinuria, unspecified (principal)
CPT/HCPCS: 82044